=== PATIENT | male | born 1945 | race Caucasian/White ===

== ENCOUNTER → 2016-06-12 | Outpatient (CLI) | payer OTHER ==
[~2016-06-12] MED LIST: ALLERGY10 MG PO; AMLODIPINE BESY1 TAB PO; B12,B-12,B 12500 MC1 PO; NAPROSYN500 MG PO; NKHM; NORCO 325 MG-51 TAB PO; PERCOCET 325 MG1 TA6 PO; PRILOSEC10 MG PO; PRILOSEC40 M1 PO; SPIRIVA18 MCG PO; SYNTHROID,LEVO25 MCG PO; TESSALON PERLE100 M1 PO; ZOFRAN ODT4 MG SL
== END | disposition home or self-care (01) ==
LOC: RAD 08:08
DX: R05 Cough (principal); I10 Essential (primary) hypertension; J44.9 Chronic obstructive pulmonary disease, unspecified; Z87.891 Personal history of nicotine dependence

== ENCOUNTER → 2016-12-17 | Outpatient (CLI) | payer OTHER | END | disposition home or self-care (01) | LOC: RAD 07:48 | DX: J44.9 Chronic obstructive pulmonary disease, unspecified (principal); I10 Essential (primary) hypertension; Z87.891 Personal history of nicotine dependence ==

== ENCOUNTER → 2016-12-24 | Outpatient (CLI) | payer OTHER | END | disposition home or self-care (01) | LOC: CT 10:18 | DX: I61.9 Nontraumatic intracerebral hemorrhage, unspecified (principal) ==

== ENCOUNTER 2017-07-22 17:56 | Emergency (ER) | payer OTHER ==
[~2017-07-22] VITALS: Ht 187.9 cm; Wt 81.6 kg
[2017-07-22] MEDS ORDERED: VIBRAMYCIN100 MG PO (19:01)
[2017-07-22] MEDS ORDERED: DELTASONE20 M1 PO (19:01)
== END 2017-07-22 19:00 | disposition home or self-care (01) ==
LOC: ED 17:56
DX: J44.1 Chronic obstructive pulmonary disease with (acute) exacerbation (principal); Z87.891 Personal history of nicotine dependence; Z79.899 Other long term (current) drug therapy; Z88.0 Allergy status to penicillin

== ENCOUNTER 2019-09-06 20:41 | Emergency (ER) | payer OTHER ==
[~2019-09-06] VITALS: Ht 185.4 cm; Wt 84.4 kg
[~2019-09-06 20:41] MED LIST changes: +DELTASONE20 M1 PO; +VIBRAMYCIN100 MG PO
== END 2019-09-06 23:46 | disposition home or self-care (01) ==
LOC: ED 20:41
DX: F01.50 Vascular dementia, unspecified severity, without behavioral disturbance, psychotic disturbance, mood disturbance, and anxiety (principal); M25.552 Pain in left hip; M79.605 Pain in left leg; J44.9 Chronic obstructive pulmonary disease, unspecified; I10 Essential (primary) hypertension; Z88.0 Allergy status to penicillin; Z79.899 Other long term (current) drug therapy; Z87.891 Personal history of nicotine dependence; Z86.73 Personal history of transient ischemic attack (TIA), and cerebral infarction without residual deficits; W18.30XA Fall on same level, unspecified, initial encounter; Y93.89 Activity, other specified; Y92.098 Other place in other non-institutional residence as the place of occurrence of the external cause; Y99.8 Other external cause status

== ENCOUNTER 2019-09-17 14:44 | Emergency (ER) | payer OTHER ==
[~2019-09-17] VITALS: Ht 182.8 cm; Wt 80.2 kg
[2019-09-17 15:36] LABS: HEMATOCRIT 41.5 % (42.0-52.0); MEAN CELL VOLUME 88.9 fl (80.0-94.0); MEAN CORPUSCULAR HGB 32.3 pg (27.0-31.0); MEAN CORPUSCULAR HGB CONC 36.4 g/dl (33.0-37.0); MEAN PLATELET VOLUME 9.7 fl (9.6-12.3); PLATELET COUNT AUTOMATED 274 10*3/uL (130-400); RED BLOOD COUNT 4.67 10*6/uL (4.50-5.90); RED CELL DISTRI WIDTH 13.1 % (0-14.5); WHITE BLOOD COUNT 14.1 10*3/uL (4.8-10.8)
[2019-09-17] MEDS ORDERED: QUETIAPINE FUMA25 MG PO (15:45)
[2019-09-17] MEDS ORDERED: LISINOPRIL5 MG PO (15:45)
[2019-09-17] MEDS ORDERED: ZOLPIDEM10 MG PO (15:46)
[2019-09-17 15:55] LABS: ACT PARTIAL THROMBO TIME 21.4 SECONDS (20.0-32.1); INTERNATIONAL NORM RATIO 1.2 (2.0-3.5)
[2019-09-17 15:56] LABS: ALKALINE PHOSPHATASE 61 U/L (45-117); BUN 41 mg/dl (7-24); CHLORIDE 108 mmol/L (98-107); CREATININE 1.45 mg/dL (0.70-1.30); SGOT/AST 171 IU/L (3-35); SGPT/ALT 88 U/L (12-78); SODIUM 140 mmol/L (136-145); TOTAL PROTEIN 8.2 gm/dL (6.4-8.2)
[2019-09-17 15:59] LABS: TROPONIN I < 0.015 ng/ml (<0.045)
[2019-09-17 16:01] LABS: PLATELET SUFFICIENCY NORMAL (NORMAL); TOTAL CELLS COUNTED 100 #CELLS
[2019-09-17 16:44] LABS: BILIRUBIN 1+ (NEGATIVE); BLOOD 3+ (NEGATIVE); CLARITY CLOUDY (CLEAR); COLOR YELLOW (YELLOW); GLUCOSE NEGATIVE (NEGATIVE); KETONE NEGATIVE (NEGATIVE); NITRITE NEGATIVE (NEGATIVE)
[2019-09-17 16:45] LABS: LEUKO ESTERASE NEGATIVE (NEGATIVE)
[2019-09-17 16:52] LABS: RBC TNTC rbc/hpf (0-2)
[2019-09-17 16:53] LABS: BACTERIA 1+; MUCOUS 3+
== END 2019-09-17 15:53 | disposition short-term general hospital (02) ==
LOC: ED 14:44
PROVIDERS: Emergency Medicine
DX: A41.9 Sepsis, unspecified organism (principal); G03.9 Meningitis, unspecified; Z88.0 Allergy status to penicillin; J44.9 Chronic obstructive pulmonary disease, unspecified; I10 Essential (primary) hypertension; K21.9 Gastro-esophageal reflux disease without esophagitis; Z86.73 Personal history of transient ischemic attack (TIA), and cerebral infarction without residual deficits; Z79.899 Other long term (current) drug therapy